=== PATIENT | female | born 1995 | race Caucasian/White ===

== ENCOUNTER 2021-05-29 10:33 | Emergency (ER) | payer SELFPAY ==
--- OUTSIDE RECORDS SUMMARY | 2021-05-29 10:37 | XMS REPORT | Continuity of Care Document ---
:1995 Author Organization [facility] t Address [address] [place] [address] Care Team Providers Name Role Phone PCP, DOES NOT HAVE A Primary Care Physician Unavailable CL Attending Clinician Unavailable Cl MONTALVO Attending Clinician Attending Clinician Unavailable Singer CATALAN Attending Clinician Madalyn Lucas DO Attending Clinician Doctor Unassigned, Name Attending Clinician Unavailable Neeru Ching Attending Clinician CL Admitting Clinician Unavailable Payers Payer Name Policy Type Policy Number Effective Date Expiration Date S reynold MEDICAID PENDING PENDING 2021 00:00:00 Problems This patient has no known problems. Allergies, Adverse Reactions, Alerts Allergy Allergy Status Severity Reaction(s) Onset Inactive Treating Comm ents Source Name Type Date Date Clinician Gabapent Propensi Active Anaphylaxis U nivers in ty to 4-30 ity of adverse 00:00: [place] reaction 00 Medical s Branch GABAPENT DRUG Active Anaphylaxis Uni vers IN INGREDI 4-30 ity of 00:00: [place] 00 [facility] NO KNOWN Drug Active Univers ALLERGIE Class ity of [facility] Social History Social Habit Start Date Stop Date Quantity Comments Source Exposure to Not sure [facility] SARS-CoV-2 (event) Medica l Branch Sex Assigned At [birth year] [facility] 00:00:00 00:00:00 Medical Branch Smoking Status Start Date Stop Date Source Unknown if ever smoked [facility] Medications Ordered Filled Start Stop Current Ordering Indication Dosage Frequency Signature Comments Components Source Medication Medication Date Date Medication? Clinician (SIG) Name Name ondansetron 2020-03 No 4mg 4 mg, Slow Univers (ZOFRAN 03-30 IV Push, ity of (PF)) 15:15: 14:29 ONCE, 1 [place] injection 4 00 :00 dose, On Medi rich mg Wed01/28/21 at 0915, ANA diphenhydrA 2020-03 No 50mg 50 mg, Uni vers MINE 03-30 Intravenou ity of (BENADRYL) 15:15: 14:30 s, ONCE, 1 [place] injection 00 :00 dose, On Medica l 50 mg Wed01/28/21 at 0915, ANA metoclopram 2020-03 No 10mg 10 mg, Uni vers brendan HCl 03-30 Slow IV ity of (REGLAN) 15:15: 14:30 Push, [place] injection 00 :00 ONCE, 1 Medical 10 mg dose, On Branch Wed01/28/21 at 0915, ANA levETIRAcet 2020-03 Yes [id number] 500mg Take 1 Univers am (KEPPRA) 1-16 tablet by ity of 500 mg 00:00: mouth 2 [place] tablet 00 (two) Medical times Branch daily. metoclopram 2020-03 Yes [id number] 10mg Take 1 Univers brendan HCl 10 -16 tablet by ity of mg tablet 00:00: mouth [place] 00 every 6 Medical (six) Branch hours. levETIRAcet 2020-03 Yes [id number] 500mg Take 1 Univers am (KEPPRA) 1-16 tablet by ity of 500 mg 00:00: mouth 2 [place] tablet 00 (two) Medical times Branch daily. metoclopram 2020-03 Yes [id number] 10mg Take 1 Univers brendan HCl 10 1-16 tablet by ity of mg tablet 00:00: mouth [place] 00 every 6 Medical (six) Branch hours. levETIRAcet 2020-03- No [id number] 500mg Take 1 Univers am (KEPPRA) 1-16 11-16 tablet by it y of 500 mg 00:00: 00:00 mouth 2 [place] tablet 00 :00 (two) Medical times Branch daily for 90 days. metoclopram 2020-03 No [id number] 10mg Take 1 Univers brendan HCl 10 -16 11-16 tablet by ity of mg tablet 00:00: 00:00 mouth [place] 00 :00 every 6 Medical (six) Branch hours. ketorolac No 30mg 30 mg, Unive rs (TORADOL) 07-13 Slow IV ity of injection 03:30: 02:43 Push, [place] 30 mg 00 :00 ONCE, 1 Medical dose, Fri Branch 07/12/20 at 2230, ANA
Fa culty member approving Restricted medication : SALINAS STANFORD butalbital- 2020- No 1{tbl} 1 tablet, Univers acetaminoph 07-13 Oral, ity of en-caff 02:30: 01:41 ONCE, 1 [place] (ESGIC) 00 :00 dose, Fri Medical 50-325-40 07/12/20 at Bran ch mg tablet 1 2129, ANA tablet metoclopram No 10mg 10 mg, Uni vers brendan HCl 07-13 Slow IV ity of (REGLAN) 02:30: 01:42 Push, [place] injection 00 :00 ONCE, 1 Medical 10 mg dose, Fri Branch 07/12/20 at 2130, ANA NaCl 0.9% No 1000mL at 999 Uni vers (NS) bolus 07-13 mL/hr, ity of infusion 01:45: 03:46 1,000 mL, Vincen[place] as 1,000 mL 00 :00 IV Medical Infusion, Branch ONCE, 1 dose, 07/12/20 at 2045, STAT meclizine Yes [id number] 25mg Take 1 U nivers 25 mg 4-30 tablet by ity of tablet 00:00: mouth [place] 00 every 6 Medical (six) Branch hours. butalbital- Yes [id number] 1{tbl} Take 1 Univers acetaminoph 4-30 tablet by ity of en-caff 00:00: mouth [place] 50-325-40 00 every 6 Medical mg tablet (six) Branch hours as needed for Pain (scale 7-10). fluticasone 2021-0 Yes [id number] 2{spray Use 2 Univers propionate 4-30 } Sprays in ity of 50 00:00: each [place] mcg/actuati 00 nostril Medic al on nasal daily. Branch spray meclizine 2020-0 Yes [id number] 25mg Take 1 U nivers 25 mg 4-30 tablet by ity of tablet 00:00: mouth [place] 00 every 6 Medical (six) Branch hours. butalbital- 2020-0 Yes [id number] 1{tbl} Take 1 Univers acetaminoph 4-30 tablet by ity of en-caff 00:00: mouth [place] 50-325-40 00 every 6 Medical mg tablet (six) Branch hours as needed for Pain (scale 7-10). fluticasone 2020-0 Yes [id number] 2{spray Use 2 Univers propionate 4-30 } Sprays in ity of 50 00:00: each [place] mcg/actuati 00 nostril Medic al on nasal daily. Branch spray meclizine 2020-0 Yes [id number] 25mg Take 1 U nivers 25 mg 4-30 tablet by ity of tablet 00:00: mouth [place] 00 every 6 Medical (six) Branch hours. butalbital- 2020- Yes [id number] 1{tbl} Take 1 Univers acetaminoph 4-30 tablet by ity of en-caff 00:00: mouth [place] 50-325-40 00 every 6 Medical mg tablet (six) Branch hours as needed for Pain (scale 7-10). fluticasone 2020-0 Yes [id number] 2{spray Use 2 Univers propionate 4-30 } Sprays in ity of 50 00:00: each [place] mcg/actuati 00 nostril Medic al on nasal daily. Branch spray meclizine 2020-0 Yes [id number] 25mg Take 1 U nivers 25 mg 4-30 tablet by ity of tablet 00:00: mouth [place] 00 every 6 Medical (six) Branch hours. butalbital- 2020-0 Yes [id number] 1{tbl} Take 1 Univers acetaminoph 4-30 tablet by ity of en-caff 00:00: mouth [place] 50-325-40 00 every 6 Medical mg tablet (six) Branch hours as needed for Pain (scale 7-10). fluticasone Yes [id number] 2{spray Use 2 Univers propionate 4-30 } Sprays in ity of 50 00:00: each [place] mcg/actuati 00 nostril Medic al on nasal daily. Branch spray meclizine Yes [id number] 25mg Take 1 U nivers 25 mg 4-30 tablet by ity of tablet 00:00: mouth [place] 00 every 6 Medical (six) Branch hours. butalbital- Yes [id number] 1{tbl} Take 1 Univers acetaminoph 4-30 tablet by ity of en-caff 00:00: mouth [place] 50-325-40 00 every 6 Medical mg tablet (six) Branch hours as needed for Pain (scale 7-10). fluticasone Yes [id number] 2{spray Use 2 Univers propionate 4-30 } Sprays in ity of 50 00:00: each [place] mcg/actuati 00 nostril Medic al on nasal daily. Branch spray cetirizine 2020- No [id number] 10mg Take 1 Univers (ZYRTEC) 10 4-30 05-31 tablet by it y of mg tablet 00:00: 04:59 mouth [place] 00 :00 daily for Medical 30 days. [place] Vital Signs Vital Name Observation Time Observation Value Comments Source Systolic blood 2021-03-23 13:47:00 150 mm[Hg] [facility] Diastolic blood 2021-03-23 13:47:00 99 mm[Hg] [facility] Heart rate 2021-03-23 13:47:00 102 /min [facility] Body temperature 2021-03-23 13:47:00 36.78 Karen [facility] Respiratory rate 2021-03-23 13:47:00 18 /min [facility] Body height 2021-03-23 13:47:00 152.4 cm [facility] Body weight 2021-03-23 13:47:00 95.255 kg [facility] BMI 2021-03-23 13:47:00 41.01 kg/m2 [facility] Oxygen saturation in 2021-03-23 13:47:00 98 /min University of Arterial blood by [facility] Pulse oximetry Branch Systolic blood 2021-01-28 15:30:00 115 mm[Hg] Univer sity of pressure [place] [facility] Diastolic blood 2021-01-28 15:30:00 83 mm[Hg] Unive rsity of pressure [place] [facility] Heart rate 2021-01-28 15:30:00 59 /min Universi ty of [place] [facility] Respiratory rate 2021-01-28 15:30:00 16 /min Univ ersity of [place] [facility] Oxygen saturation in 2021-01-28 15:30:00 99 /min University of Arterial blood by [facility] Pulse oximetry Branch Body temperature 2021-01-28 14:11:00 36.56 Karen Univ ersity [facility] [place] [facility] Body weight 2021-01-28 14:11:00 95.255 kg Universi ty of [facility] BMI 2021-01-28 14:11:00 41.01 kg/m2 Universi ty [facility] [place] [facility] Systolic blood 2020-10-08 16:39:00 131 mm[Hg] Univer sity of pressure [place] [facility] Diastolic blood 2020-10-08 16:39:00 92 mm[Hg] Unive rsity of pressure [place] [facility] Heart rate 2020-10-08 16:39:00 78 /min [facility]i ty of [place] [facility] [place] Body temperature 2020-10-08 16:39:00 37.22 Karen Univ ersity [facility] [place] [facility] Respiratory rate 2020-10-08 16:39:00 18 /min Univ ersity of [place] [facility] Oxygen saturation in 2020-10-08 16:39:00 99 /min University of Arterial blood by [facility] Pulse oximetry Branch Systolic blood 2020-07-13 02:47:00 132 mm[Hg] Univer sity of pressure [place] [facility] Diastolic blood 2020-07-13 02:47:00 71 mm[Hg] Unive rsity of pressure [place] [facility] Respiratory rate 2020-07-13 02:47:00 16 /min Univ ersity of [place] [facility] Oxygen saturation in 2020-07-13 02:47:00 97 /min University of Arterial blood by [facility] Pulse oximetry Branch Heart rate 2020-07-13 02:30:00 86 /min [facility] Body temperature 2020-07-13 00:27:00 37 Karen [facility] Body height 2020-07-13 00:27:00 152.4 cm [facility] Body weight 2020-07-13 00:27:00 90.719 kg [facility] BMI 2020-07-13 00:27:00 39.06 kg/m2 [facility] Procedures Procedure Date / Time Performed Performing Clinician Sourc e XR HAND 3+ VW RIGHT 2021-03-23 14:43:06 Tulio Smallwood [facility] XR WRIST 3+ VW RIGHT 2021-03-23 14:43:06 Tulio Smallwood [facility] CONSENT/REFUSAL FOR 2021-03-23 13:42:02 Doctor Unassigned, [facility] [place] [facility] AND Name Medical Branch TREATMENT NOTICE OF PRIVACY 2021-03-23 13:40:37 Doctor Unassigned, No [facility] Branch CONSENT/REFUSAL FOR 2021-01-28 14:04:35 Doctor Unassigned, [facility] [place] [facility] Name [facility] Branch TREATMENT POCT TEST 2020-10-08 16:45:00 Ana Lucas [facility] NOTICE OF PRIVACY 2020-10-08 16:22:49 Doctor Unassigned, No [facility] Branch CONSENT/REFUSAL FOR 2020-10-08 16:21:26 Doctor Unassigned, No [facility] [place] [facility] AND Name Medical Branch TREATMENT CT ABDOMEN PELVIS WO 2020-07-13 02:01:55 [facility] CONTRAST [facility] Branch XR CHEST 2 VW 2020-07-13 01:42:53 [place] Stanford [place] [facility] CT HEAD WO CONTRAST 2020-07-13 01:42:28 Sal[place] Stanford [facility] BASIC METABOLIC PANEL 2020-07-13 01:16:00 [facility] Stanford [facility] (NA, K, CL, CO2, Medical Branch GLUCOSE, BUN, CREATININE, CA) CBC WITH DIFF 2020-07-13 01:16:00 [facility] Stanford [facility] URINALYSIS 2020-07-13 01:16:00 [facility] Stanford [facility] POCT TEST 2020-07-13 01:10:00 [facility] Stanford [facility] ty [facility] Encounters Start End Encounter Admission Attending Care Care Encounter Source Date/Time Date/Time Type Type Clinicians Facility Department ID 2021-03-23 2021-03-23 [id number] Univers 07:48:00 09:23:00 TULIO castillo [facility] 2021-03-23 2021-03-23 [facility] [id number] Univers 07:48:00 09:23:00 Tulio PACKER [id number] i ty of [place] [id number] [facility] [id number] [address] 2021-01-28 2021-01-28 Emergency X [facility] ERT [id number] Univers 08:13:00 09:56:00 TROY ity [facility] 2021-01-28 2021-01-28 Emergency [facility] [id number] Univers 08:13:00 09:56:00 Troy PACKER [id number] i ty of [place] [id number] [facility] [id number] [address] 2020-10-08 2020-10-08 [facility] [id number] Univers 11:45:00 12:39:00 Ana Packer [id number] ity of [place] [id number] [facility] [id number] [address] 2020-10-08 2020-10-08 Emergency X [facility] ERT [id number] Univers 11:21:00 11:21:00 ity [facility] 2020-10-08 2020-10-08 Orders Doctor BAHENA [id number] Univers 00:00:00 00:00:00 Only Unassigned, CANDICE [id number] ity of [place] [facility] [id number] [place] as [id number] [facility] 009 Branch 2020-07-12 2020-07-12 Emergency Zarina, [facility] [id number] Univers 19:33:00 22:46:00 [place] Packer [id number] i ty [place] 4[place].2.686 [place] [id number] [facility] 084 Branch 2020-07-12 2020-07-12 Emergency X [facility] ERT [id number] Univers 19:25:00 19:25:00 ity [facility] Results Test Description Test Time Test Comments Results Result Comments Source POCT TEST 2020-10-08 16:45:00 Test Item Value Reference Range Interpretation Comme nts POCT PREG (test code = 1605) negative On board controls acceptable with C Line (test code = 3574) present POCT PREG LOT # (test code = 3575) [id number] POCT PREG TEST DATE (test code = 3576) Lab Interpretation (test code = 94689-7) Normal [facility] [id number] 02:00:12 Test Item Value Reference Range Interpretation Comments WBC (test code = See_Comment H [Automated 1113-2) message] The sy stem which generated this result transmitted reference range : 4.30 - 11.10 10*3/?L. The reference range was not used to interpret this result as normal/abnormal . RBC (test code = See_Comment [Automated 946-8) message] The sy stem which generated this result transmitted reference range : 3.93 - 5.25 10*6/?L. The reference range was not used to interpret this result as normal/abnormal . HGB (test code = 14.1 g/dL 11.6-15.0 718-7) HCT (test code = 43.2 % 35.7-45.2 4544-3) MCV (test code = 93.3 fL 80.6-95.5 787-2) MCH (test code = 30.5 pg 25.9-32.8 785-6) MCHC (test code = 32.6 g/dL 31.6-35.1 786-4) RDW-SD (test code = 39.9 fL 39.0-49.9 87791-8) RDW-CV (test code = 11.7 % 12.0-15.5 L 788-0) PLT (test code = See_Comment [Automated 777-3) message] The sy stem which generated this result transmitted reference range : 166 - 358 10*3/ ?L. The reference r adam was not used to interpret this result as normal/abnormal . MPV (test code = 10.2 fL 9.5-12.9 25946-8) NRBC/100 WBC (test See_Comment [Automat ed code = 0242183168) message] The system which generated this result transmitted reference range : 0.0 - 10.0 /100 WBCs. The refer ence range was not u sed to interpret th is result as normal/abnormal . NRBC x10^3 (test code <0.01 See_Comment [Auto mated = 9419138051) message] The s ystem which generated this result transmitted reference range : 10*3/?L. The reference range was not used to interpret this result as normal/abnormal . GRAN MAT (NEUT) % 58.6 % (test code = 770-8) IMM GRAN % (test code 0.60 % = 8714433212) LYMPH % (test code = 32.2 % 736-9) MONO % (test code = 7.1 % 5905-5) EOS % (test code = 1.2 % 713-8) BASO % (test code = 0.3 % 706-2) GRAN MAT x10^3(ANC) 8.69 10*3/uL 1.88-7.09 H (test code = 6004867544) IMM GRAN x10^3 (test 0.09 10*3/uL 0.00-0.06 H code = 7928327511) LYMPH x10^3 (test code 4.78 10*3/uL 1.32-3.29 H = 731-0) MONO x10^3 (test code 1.05 10*3/uL 0.33-0.92 H = 742-7) EOS x10^3 (test code = 0.18 10*3/uL 0.03-0.39 711-2) BASO x10^3 (test code 0.05 10*3/uL 0.01-0.07 = 704-7) Lab Interpretation Abnormal (test code = 00983-4) [facility] Metabolic Panel (NA, K, CL, CO2, GLUCOSE, BUN, CREATININE, CA)2020-07-13 01:55:33 Test Item Value Reference Range Interpretation Comments NA (test code = 140 mmol/L 135-145 3330462527) K (test code = 3.9 mmol/L 3.5-5.0 0127657500) CL (test code = 105 mmol/L 98-108 4915259820) CO2 TOTAL (test code 24 mmol/L 23-31 = 3807595699) AGAP (test code = 2-16 4207767208) BUN (test code = 14 mg/dL 7-23 4061940027) GLUCOSE (test code = 93 mg/dL 70-110 3938623540) CREATININE (test code 0.79 mg/dL 0.50-1.04 = 7713424810) CALCIUM (test code = 9.1 mg/dL 8.6-10.6 1664729188) eGFR (test code = mL/min/1.73m2 1265553553) ELAN (test code = ELAN) Association of Glomerular Filtration Rate (GFR) and Staging of Kidney Disease* + + +- +| GFR (mL/min/1.73 m2) ?| With Kidney Damage ?| ?Without Kidney Damage+ ------+ ----+ ------+| ?>90 ?| ?Stage one ?| ? Normal ?+ -+ + -+| ?60-89 ?| ?Stage two ?| ? Decreased GFR ? + + +- +| ?30-59 ?| ?Stage three ?| ? Stage three ? + + +- +| ?15-29 ?| ?Stage four ? | ? Stage four ?+ -+ + -+| ?<15 (or dialysis) ? ?| ?Stage five ? | ? Stage five ?+ -+ + -+ *Each stage assumes the associated GFR level has been in effect for at least three months. ?Stages 1 to 5, with or without kidney disease, indicate chronic kidney disease. Notes: Determination of stages one and two (with eGFR >59mL/min/1.73 m2) requires estimation of kidney damage for at least three months as defined by structural or functional abnormalities of the kidney, manifested by either:Pathological abnormalities or Markers of kidney damage (including abnormalities in the composition of the blood or urine or abnormalities in imaging tests). [facility] W/O [id number] 01:51:55 No acute intracranial hemorrhage or mass effect. Preliminary Report Dictated by Resident: Eduard Sahu MD., have reviewed this study and agree with theabove report.EXAM: CT HEAD WO CONTRAST HISTORY: Headache, intracranial hemorrhage suspected COMPARISON: ?None. TECHNIQUE: CT head was obtained and reconstructed into axial, coronal andsagittal projection images. FINDINGS: The ventricles and cerebral sulci are normal in caliber and configuration.No hydrocephalus, midline shift or pathological extra-axial fluidcollection is present. The basal cisterns are unremarkable. Thereis no acute intracranial hemorrhage or significant mass effect.Partially empty sella. The maria-whitematter differentiation is preserved. The mastoid air cells and paranasal air sinuses are clear. The calvariumand central skull base are unremarkable. [facility], Radiant Results Inft User - 07/12/2020 8:53 PM CDTEXAM: CT HEAD WO CONTRASTHISTORY: Headache, intracranial hemorrhage suspected COMPARISON: None.TECHNIQUE: CT head was obtained and reconstructed into axial, coronal andsagittal projection images.FINDINGS:The ventricles and cerebral sulci are normal in caliber and configuration.No hydrocephalus, midline shift or pathological extra-axial fluidcollection is present. The basal cisterns are unremarkable.There is no acute intracranial hemorrhage or significant mass effect.Partially empty sella. The maria-white matter differentiation is preserved.The mastoid air cells and paranasal air sinuses are clear. The calvariumand central skull base are unremarkable.IMPRESSIONNo acute intracranial hemorrhage or mass effect.Preliminary Report Dictated by Resident: Eduard Raza MD., have reviewed this study and agree with theabove report.[facility]inalysis[facility]21-[facility]-01 01:34:09 Test Item Value Reference Range Interpretation Comments APPEARANCE (test code = Clear Clear 8352698879) COLOR (test code = Yellow Yellow 4328169639) PH (test code = 4.8-8.0 1299860249) SP GRAVITY (test code = 1.003-1.030 H 1256370647) GLU U QUAL (test code = Normal Normal 9494216154) BLOOD (test code = Negative Negative 9126539442) KETONES (test code = Negative Negative 5019092795) PROTEIN (test code = Negative Negative 2887-8) UROBILIN (test code = 2.0 mg/dL Normal A 2692150691) BILIRUBIN (test code = Negative Negative 6257359955) NITRITE (test code = Negative Negative 1573961023) LEUK VIKI (test code = Negative Negative 3293014326) RBC/HPF (test code = See_Comment [Autom ated message] 2068035794) The system Apprity generated this result transmit clara reference range : 0 - 3 HPF. The refe rence range was not u sed to interpret th is result as normal/abnormal . WBC/HPF (test code = <1 See_Comment [Autom ated message] 6169299726) The system Apprity generated this result transmit clara reference range : 0 - 5 HPF. The refe rence range was not u sed to interpret th is result as normal/abnormal . BACTERIA (test code = Negative Negative 5851620540) MUCOUS (test code = Slight Negative LPF A 0056699343) SQ EPITH (test code = HPF 0128571864) CA OXALATE (test code = See_Comment H [Au tomated message] 5185254709) The system Apprity generated this result transmit clara reference range : <=1 HPF. The refere nce range was not u sed to interpret th is result as normal/abnormal . Lab Interpretation (test Abnormal code = 60939-9) [facility] BranchPO[facility] [id number] 01:10:00 Test Item Value Reference Range Interpretation Comments POCT PREG (test code = 1605) negative On board controls acceptable with present C Line (test code = 3574) POCT PREG LOT # (test code = 3575) [id number] POCT PREG TEST DATE (test 02/11/2022 code = 3576) Lab Interpretation (test code = Normal 02114-6) [facility]"
--- NOTE | 2021-05-29 10:47 | EDPHYS ---
Physician Documentation [facility] Name: Shari Quinones Age: 25 yrs Sex: Female : 1995 Arrival Date: 05/29/2021 Time: 10:37 Bed 18 Private MD: ED Physician Marvin Byers HPI: 05/29 10:54 This 25 yrs old Female presents to ER via Ambulatory with complaints of Hand Pain. kb 10:54 Severity of symptoms: At their worst the symptoms were moderate, in the emergency kb department the symptoms are unchanged. The patient has not experienced similar symptoms in the past. The patient has not recently seen a physician. 10:54 The patient or guardian reports pain, tenderness. The complaints affect the right wrist kb diffusely. Context: The problem was sustained at home, resulted from an unknown cause. Onset: The symptoms/episode began/occurred 1 month(s) ago. Modifying factors: The symptoms are alleviated by nothing, the symptoms are aggravated by movement. Associated signs and symptoms: Pertinent positives: numbness distally, tingling distally. Pt reports wrist pain for a month with no known recent injury. States the pain radiates up arm and down hand with intermittent numbness and tingling to hand. Full ROM. No redness, warmth, swelling noted. . Historical: - Allergies: 10:49 gabapentin; ab2 - Home Meds: 10:49 None [Active]; ab2 - PMHx: 10:49 Seizure; ab2 - PSHx: 10:49 section; ab2 - Immunization history:: Adult Immunizations up to date. - Social history:: Smoking status: Patient denies any tobacco usage or history of. ROS: 10:50 Constitutional: Negative for fever, chills, and weight loss. kb 10:50 MS/extremity: Positive for pain, tingling, of the right wrist. 10:50 All other systems are negative. Exam: 10:52 Constitutional: This is a well developed, well nourished patient who is awake, alert, kb and in no acute distress. Head/Face: Normocephalic, atraumatic. ENT: Moist Mucous membranes Respiratory: Respirations even and unlabored. No increased work of breathing. Talking in full sentences Skin: Warm, dry with normal turgor. Normal color. Neuro: Awake and alert, GCS 15, oriented to person, place, time, and situation. Moves all extremities. Normal gait. Psych: Awake, alert, with orientation to person, place and time. Behavior, mood, and affect are within normal limits. 10:52 Musculoskeletal/extremity: Extremities: grossly normal except: noted in the right wrist: pain, tenderness, paresthesias, ROM: intact in all extremities, limited active range of motion due to pain, in the right wrist, Circulation is intact in all extremities. Sensation intact. Vital Signs: 10:45 BP 148 / 109; Pulse 84; Resp 19; Temp 97.8(TE); Pulse Ox 100% on R/A; Weight 90.72 kg; ab2 Height 5 ft. 0 in. (152.40 cm); Pain 6/10; 11:01 BP 133 / 81; Pulse 81; Resp 16; Pulse Ox 98% on R/A; ab2 10:45 Body Mass Index 39.06 (90.72 kg, 152.40 cm) ab2 MDM: 10:45 Patient medically screened. kb 10:49 Data reviewed: vital signs, nurses notes. Data interpreted: Pulse oximetry: on room air kb is 100 %. Interpretation: normal. Counseling: I had a detailed discussion with the patient and/or guardian regarding: the historical points, exam findings, and any diagnostic results supporting the discharge/admit diagnosis, the need for outpatient follow up, a orthopedic surgeon, to return to the emergency department if symptoms worsen or persist or if there are any questions or concerns that arise at home. 10:53 ED course: +phalen test. kb Administered Medications: 10:58 Drug: Ketorolac 30 mg Route: IM; Site: right deltoid; ab2 Disposition: 15:30 Co-signature as Attending Physician, Marvin Byers DO I agree with the assessment and ms3 plan of care. Disposition Summary: 05/29/21 10:46 Discharge Ordered Location: Home kb Condition: Stable kb Diagnosis - Carpal tunnel syndrome, right upper limb kb Followup: kb - With: Emergency Department - When: As needed - Reason: Worsening of condition Followup: kb - With: Private Physician - When: 2 - 3 days - Reason: Recheck today's complaints, Continuance of care, Re-evaluation by your physician Discharge Instructions: - Discharge Summary Sheet kb - Carpal Tunnel Syndrome, [id number] kb Forms: - Medication Reconciliation Form kb - Thank You Letter kb - Antibiotic Education kb - Prescription Opioid Use kb Prescriptions: - Cyclobenzaprine 10 mg Oral Tablet - take 1 tablet by ORAL route every 8 hours As needed; 15 tablet; Refills: 0, kb Product Selection Permitted - Diclofenac Sodium 75 mg Oral tablet,delayed release (DR/EC) - take 1 tablet by ORAL route 2 times per day As needed; 30 tablet; Refills: 0, kb Product Selection Permitted Signatures: Gina Goins FNP-C FNP-Ckb Sims, Marcus, DO DO ms3 Luis A Dobbs ab2
[2021-05-29] MEDS ORDERED: KETOROLAC 30 MG/ML INJ ONE (10:59)
--- NOTE | 2021-05-29 11:02 | ER ---
Nurse's Notes [facility] Name: Shari Quinones Age: 25 yrs Sex: Female : 1995 Arrival Date: 05/29/2021 Time: 10:37 Bed 18 Private MD: Diagnosis: Carpal tunnel syndrome, right upper limb Presentation: 05/29 10:45 Chief complaint: Patient states: "I hurt my wrist about a month ago and last night I ab2 couldn't sleep the pain was so bad.". Coronavirus screen: Vaccine status: Patient reports being unvaccinated. Client denies travel out of the [place] in the last 14 days. At this time, the client does not indicate any symptoms associated with coronavirus-19. Ebola Screen: Patient negative for fever greater than or equal to 101.5 degrees Fahrenheit, and additional compatible Ebola Virus Disease symptoms Patient denies exposure to infectious person. Patient denies travel to an Ebola-affected area in the 21 days before illness onset. No symptoms or risks identified at this time. Initial Sepsis Screen: Does the patient meet any 2 criteria? No. Patient's initial sepsis screen is negative. Does the patient have a suspected source of infection? No. Patient's initial sepsis screen is negative. Risk Assessment: Do you want to hurt yourself or someone else? Patient reports no desire to harm self or others. Onset of symptoms is unknown. 10:45 Method Of Arrival: Ambulatory ab2 10:45 Acuity: АННА 4 ab2 Triage Assessment: 10:50 General: Appears in no apparent distress. comfortable, Behavior is calm, cooperative, ab2 appropriate for age. Pain: Complains of pain in right wrist and right hand Pain currently is 6 out of 10 on a pain scale. EENT: No deficits noted. No signs and/or symptoms were reported regarding the EENT system. Neuro: Level of Consciousness is awake, alert, obeys commands, Oriented to person, place, time, situation, Appropriate for age Director Of [employer] Programs are equal bilaterally Full function Gait is steady, Speech is normal, Facial symmetry appears normal. Cardiovascular: No deficits noted. Denies chest pain, shortness of breath, Heart tones S1 S2 present. Respiratory: Airway is patent Respiratory effort is even, unlabored, Respiratory pattern is regular, symmetrical, Breath sounds are clear bilaterally. GI: No deficits noted. No signs and/or symptoms were reported involving the gastrointestinal system. : No deficits noted. No signs and/or symptoms were reported regarding the genitourinary system. Derm: No deficits noted. No signs and/or symptoms reported regarding the dermatologic system. Skin is intact, is healthy with good turgor, Skin is pink, warm \\T\\ dry. Musculoskeletal: Reports pain in right wrist and right hand. Historical: - Allergies: 10:49 gabapentin; ab2 - Home Meds: 10:49 None [Active]; ab2 - PMHx: 10:49 Seizure; ab2 - PSHx: 10:49 section; ab2 - Immunization history:: Adult Immunizations up to date. - Social history:: Smoking status: Patient denies any tobacco usage or history of. Screenin:52 Abuse screen: Denies threats or abuse. Denies injuries from another. Nutritional ab2 screening: No deficits noted. Tuberculosis screening: No symptoms or risk factors identified. Fall Risk None identified. Assessment: 10:52 Reassessment: No changes from previously documented assessment. See triage assessment. ab2 Vital Signs: 10:45 BP 148 / 109; Pulse 84; Resp 19; Temp 97.8(TE); Pulse Ox 100% on R/A; Weight 90.72 kg; ab2 Height 5 ft. 0 in. (152.40 cm); Pain 6/10; 11:01 BP 133 / 81; Pulse 81; Resp 16; Pulse Ox 98% on R/A; ab2 10:45 Body Mass Index 39.06 (90.72 kg, 152.40 cm) ab2 ED Course: 10:37 Patient arrived in ED. ds1 10:38 Gina Goins FNP-C is PHCP. kb 10:38 Marvin Byers DO is Attending Physician. kb 10:45 Luis A Dobbs is Primary Nurse. ab2 10:49 Triage completed. ab2 10:51 Arm band placed on right wrist. ab2 10:52 Patient has correct armband on for positive identification. Bed in low position. Call ab2 light in reach. Side rails up X2. 10:52 No provider procedures requiring assistance completed. ab2 10:52 Patient did not have IV access during this emergency room visit. ab2 Administered Medications: 10:58 Drug: Ketorolac 30 mg Route: IM; Site: right deltoid; ab2 Outcome: 10:46 Discharge ordered by . andi 11:01 Discharged to home ambulatory. ab2 11:01 Condition: good 11:01 Discharge instructions given to patient, Instructed on discharge instructions, follow up and referral plans. medication usage, Demonstrated understanding of instructions, follow-up care, medications, Prescriptions given X 2. 11:01 Patient left the ED. ab2 Signatures: Gina Goins, BOB SPENCER-Afua Savage ds1 Luis A Dobbs ab2
[2021-05-29 11:15] VITALS: TEMP 97.8
[2021-05-29 11:16] VITALS: BP 133/81; O2SAT 98
== END 2021-05-29 11:01 | disposition home or self-care (01) ==
LOC: ER 10:33
DX: G56.01 Carpal tunnel syndrome, right upper limb (principal); Z88.8 Allergy status to other drugs, medicaments and biological substances
CPT/HCPCS: 96372; 99283